=== PATIENT | female | born 1950 | race African-American/Black ===

== ENCOUNTER 2016-08-25 19:48 | Emergency (ER) | payer MEDICARE ==
[~2016-08-25] VITALS: Ht 165.1 cm; Wt 70.0 kg
[2016-08-25] MEDS ORDERED: ACETAMINOPHEN 325MG TABLET ONE (20:14)
[2016-08-25] MEDS ORDERED: ONDANSETRON HCL 4MG/2ML VIAL IV STA (20:24)
[2016-08-25] MEDS ORDERED: SODIUM CHLORIDE 0.9% 500 ML IV ONE (20:24)
[2016-08-25] MEDS ORDERED: ACETAMINOPHEN 325MG TABLET PO ONE (20:30)
[2016-08-25] MEDS ORDERED: CEFTRIAXONE 1 G PREMIX 50 ML IV ONE (20:30)
[2016-08-25 20:50] LABS: PROTHROMBIN TIME 10.7 sec
[2016-08-25 20:53] LABS: BASOPHILS % 0.4 % (0.0-2.0); DIFFERENTIAL COMMENT 0; EOSINOPHILS % 0.1 % (0.0-5.0); HEMATOCRIT. 30.4 % (36.0-48.0); HEMOGLOBIN. 9.6 g/dL (12.0-16.0); LYMPHOCYTES % 11.3 % (20.0-50.0); MEAN CORPUSCULAR HEMOGLOBIN 23.8 pg (28.0-32.0); MEAN CORPUSCULAR HGB CONC 31.7 g/dL (31.0-37.0); MEAN CORPUSCULAR VOLUME 75.1 fL (81.0-99.0); MEAN PLATELET VOLUME 8.3 fl (7.4-10.4); MONOCYTES % 6.3 % (2.0-8.0); NEUTROPHILS % 81.9 % (40.0-76.0); PLATELET 247 x1000/uL (130-400); RED BLOOD CELL COUNT 4.05 mill/uL (4.2-5.4); RED CELL DISTRIBUTION WIDTH 16.2 % (11.6-14.6); WHITE BLOOD COUNT 7.6 x1000/uL (4.5-11.0)
[2016-08-25 21:23] LABS: ALANINE AMINOTRANSFERASE 16 IU/L (13-61); ALBUMIN 3.4 g/dL (3.4-5.0); ANION GAP 15; CARBON DIOXIDE 23 mEq/L (21-32); CHLORIDE 102 mEq/L (98-107); INDEX HEMOLYSI 1 (1-3); INDEX ICTERIC 1 (1-4); INDEX LIPEMIC 1 (1-3); LIPASE 234 IU/L (73-393); UREA NITROGEN BLOOD 15 mg/dL (7-21); eGFR 50 mL/min (>60)
[2016-08-25 21:24] LABS: CLARITY URINE CLOUDY (CLEAR); COLOR URINE YELLOW (YELLOW); GLUCOSE URINE 3+ (NEGATIVE); KETONES URINE TRACE (NEGATIVE); LEUKOCYTE ESTERASE URINE 2+ (NEGATIVE); NITRITE URINE POSITIVE (NEGATIVE); OCCULT BLOOD URINE TRACE (NEGATIVE); PH URINE 5.5 (4.5-8.0); PROTEIN URINE TRACE (NEGATIVE); UROBILINOGEN URINE 0.2 E.U./dL (0.2-1.0)
[2016-08-25 21:24] LABS: NT PRO B-TYPE NATRIURETIC PEP 169 pg/mL (5-125); TROPONIN I < 0.02 ng/mL (0.00-0.04)
[2016-08-25 21:39] LABS: BACTERIA URINE 2+; RBC URINE 0-2 /hpf (0-2); SQUAMOUS EPITHELIAL CELL URINE 1+ /lpf (RARE/1+); WBC URINE 50-100 /hpf (0-2)
[2016-08-26 01:27] VITALS: BP 107/78
== END 2016-08-26 01:28 | disposition home or self-care (01) ==
LOC: ER 19:57
DX: N39.0 Urinary tract infection, site not specified (principal); R50.9 Fever, unspecified; E11.9 Type 2 diabetes mellitus without complications
CPT/HCPCS: 36415; 71010; 74176; 80053; 81001; 83605; 83690; 83880; 84484; 85025; 85610; 87040; 87077; 87086; 87186; 93005; 96361; 96365; 96375; 99285; J0696; J2405; J7030